=== PATIENT | male | born 1945 ===

== ENCOUNTER → 2016-09-22 | Outpatient (CLI) | payer OTHER ==
--- NOTE | 2016-09-22 20:50 | ECHOF ---
ECHOCARDIOGRAM DATE OF PROCEDURE September 22, 2016 This is a two-dimensional echo with spectral Doppler, color-flow and M-mode. It was obtained in a patient with history of coronary artery disease. Left atrium is mildly dilated. Left ventricular end-diastolic dimension is normal. Left ventricular wall thickness is mildly increased. LV systolic function is overall normal with ejection fraction of about 55% with hypokinetic posterior and inferior schuster. Aortic root dimension is normal. Right atrium is normal. Right ventricle is normal. Mitral valve annulus is calcified. Mitral valve leaflets are normal with mild mitral regurgitation. Aortic valve shows fibrocalcific changes with no stenosis or insufficiency. Tricuspid valve shows trace of tricuspid regurgitation with normal estimated pulmonary artery systolic pressure of 25. Pulmonary valve shows trace of pulmonary insufficiency. There is no pericardial effusion. IMPRESSION 1. Wall motion abnormalities as described above with ejection fraction of about 55%. 2. Mild left ventricular hypertrophy. 3. Mild left atrial dilation. 4. Mitral annulus calcification with mild mitral regurgitation. 5. Aortic sclerosis. 6. Trace of tricuspid regurgitation with normal estimated pulmonary artery systolic pressure of 25. 7. Trace of pulmonary insufficiency. [facility]
== END ==
LOC: IMA 12:32
DX: Z02.9 Encounter for administrative examinations, unspecified (principal); I08.0 Rheumatic disorders of both mitral and aortic valves
CPT/HCPCS: 93306